=== PATIENT | male | born 1995 ===

== ENCOUNTER 2017-12-10 14:01 | Emergency (ER) | payer BC ==
[2017-12-10 14:10] VITALS: BP 118/77
--- NOTE | 2017-12-10 14:29 | UC ---
Respiratory Complaint HPI - HPI Summary HPI Summary: Patient presents with an unremarkable past medical history. He presents today with complaints of fever, fatigue and generalized body aches. He denies chest, or abdominal pain, nausea, vomiting or diarrhea. He states he is able to eat, and drink. He denies any dyspnea, weakness, ill contacts, or recent travel. - History of Current Complaint Chief Complaint: UCGeneralIllness Stated Complaint: RESP COMPLAINT Time Seen by Provider: 12/10/17 14:17 Hx Obtained From: Patient Onset/Duration: Gradual Onset, Lasting Days Timing: Constant Severity Initially: Moderate Severity Currently: Moderate Associated Signs And Symptoms: Positive: Fever - Risk Factors Pulmonary Embolism Risk Factors: Negative Cardiac Risk Factors: Negative Pseudomonas Risk Factors: Negative Tuberculosis Risk Factors: Negative - Allergies/Home Medications Allergies/Adverse Reactions: Allergies Allergy/AdvReac Type Severity Reaction Status Date / Time No Known Allergies Allergy Verified 12/10/17 14:09 Home Medications: Home Medications NK [No Home Medications Reported] 12/10/17 [History Confirmed 12/10/17] PMH/Surg Hx/FS Hx/Imm Hx Previously Healthy: Yes - Surgical History Surgical History: None - Family History Known Family History: Positive: None - Social History Occupation: Student Lives: With Family Alcohol Use: None Substance Use Type: None Smoking Status (MU): Never Smoked Tobacco Review of Systems Constitutional: Fatigue Skin: Negative Eyes: Negative ENT: Negative Respiratory: Negative Cardiovascular: Negative Gastrointestinal: Negative Genitourinary: Negative Motor: Negative Neurovascular: Negative Musculoskeletal: Arthralgia, Myalgia Neurological: Negative Psychological: Negative Is Patient Immunocompromised?: No All Other Systems Reviewed And Are Negative: Yes Physical Exam Triage Information Reviewed: Yes Appearance: Well-Appearing Vital Signs: Initial Vital Signs Temp 97.9 F 12/10/17 14:06 Pulse 91 12/10/17 14:06 Resp 21 12/10/17 14:06 BP 118/77 12/10/17 14:06 Pulse Ox 99 12/10/17 14:06 Vital Signs Reviewed: Yes Eye Exam: Normal ENT Exam: Normal Neck exam: Normal Neck: Positive: 1 Respiratory Exam: Normal Cardiovascular Exam: Normal Abdominal Exam: Normal Musculoskeletal Exam: Normal Neurological Exam: Normal Psychological Exam: Normal Skin Exam: Normal UC Diagnostic Evaluation - Laboratory O2 Sat by Pulse Oximetry: 99 Respiratory Course/Dx - Course Course Of Treatment: Patient presents with complaints of 48 hour fatigue, malaise, generalzied body aches. He has normal vital signs. He had a negative influnza screen. However I do feel that he has influenza like illness, with no underlying comorbities and is out of the window for treatment. He is going to take tylenol and advil alternating every 4 hours, push fluids and rest. If for any reason he does not improve as anticipated he was told to follow up with his PCP. he verbalized understanding and was in agreement with the discharge plan. - Differential Dx/Diagnosis Differential Diagnosis/HQI/PQRI: Pneumothorax, Other - influenza like illness Provider Diagnoses: ifluenza like illness Discharge - Discharge Plan Condition: Stable Disposition: HOME Patient Education Materials: Viral Syndrome (ED) Referrals: Mukul White MD [Primary Care Provider] -
== END 2017-12-10 14:50 | disposition home or self-care (01) ==
LOC: UCEAST 14:01
DX: J11.1 Influenza due to unidentified influenza virus with other respiratory manifestations (principal)
CPT/HCPCS: 87502; 99201; G0463